=== PATIENT | female | born 1955 | race Caucasian/White ===

== ENCOUNTER 2021-01-09 17:46 | Day surgery (SDCO) | payer OTHER, MEDICARE ==
[2021-01-09 18:09] LABS: BASOPHIL 0.1 % (0-2); EOSINOPHIL 0.1 % (0-7); HCT 40.3 % (37.0-47.0); HGB 13.6 g/dl (12.5-16.0); LYMPHOCYTE 5.4 % (15-48); MCH 30.2 pg (25.0-31.0); MCHC 33.7 g/dL (32.0-36.0); MCV 89.4 fL (78.0-100.0); NEUTROPHIL 85.8 % (41-80); NRBC 0; PLT 212 K/uL (150-400); RBC 4.51 M/uL (4.20-5.40); RDW 13.8 % (11.5-14.0)
[2021-01-09 18:18] LABS: INR 1.07 (0.9-1.2); PROTHROMBIN TIME 13.2 SECONDS (11.4-13.6); PTT 30.9 SECONDS (22.2-34.7)
[2021-01-09 18:26] LABS: BILIRUBIN - TOTAL 0.9 mg/dL (0.2-1.0); CREATININE 0.6 mg/dL (0.51-0.95); GLOBULIN (CALCULATION) 4.5 g/dL; TOTAL PROTEIN 8.5 g/dL (6.4-8.2)
[2021-01-09 21:33] LABS: CORONAVIRUS 2019 SARS-COV-2 NEGATIVE (NEGATIVE); INFLUENZA A NAA NEGATIVE (NEGATIVE)
[2021-01-09] MEDS ORDERED: HCTZ25 MG PO (23:43)
[2021-01-09] MEDS ORDERED: CLARITIN10 MG PO (23:44)
[2021-01-09 23:52] LABS: BILIRUBIN NEGATIVE (NEGATIVE); BLOOD TRACE-INTACT Ery/uL (NEGATIVE); CLARITY CLEAR (CLEAR); COLOR YELLOW (YELLOW); GLUCOSE (U) NORMAL (NORMAL); LEUKOCYTES NEGATIVE Leu/uL (NEGATIVE); NITRITE NEGATIVE (NEGATIVE); PROTEIN NEGATIVE (NEGATIVE); SPECIFIC GRAVITY <=1.005 (1.001-1.030); UROBILINOGEN 0.2 mg/dL (0.2-1.0); pH 6.5 (5.0-9.0)
[2021-01-09 23:55] LABS: SQUAMOUS EPITHELIAL CELLS RARE; URINARY RBC RARE
[2021-01-10 05:51] LABS: BASOPHIL 0.3 % (0-2); EOSINOPHIL 0.1 % (0-7); HCT 34.6 % (37.0-47.0); HGB 11.7 g/dl (12.5-16.0); LYMPHOCYTE 17.6 % (15-48); MCH 30.6 pg (25.0-31.0); MCHC 33.8 g/dL (32.0-36.0); MCV 90.6 fL (78.0-100.0); NEUTROPHIL 69.7 % (41-80); NRBC 0; PLT 198 K/uL (150-400); RBC 3.82 M/uL (4.20-5.40); RDW 13.9 % (11.5-14.0)
[2021-01-10 06:17] LABS: BUN/CREAT RATIO (CALC) 27.5 RATIO; CREATININE 0.69 mg/dL (0.51-0.95); POTASSIUM 3.7 mmol/L (3.5-5.1)
[2021-01-10] MEDS ORDERED: TRAMADOL HCL50 MG PO (13:36)
--- NOTE | 2021-01-10 14:41 | NUR ---
PT. TO D/C HOME AFTER ECHO. NO NEEDS.
[2021-05-14] MEDS ORDERED: MINOCYCLINE HC100 MG PO (15:23)
[2021-05-14] MEDS ORDERED: VITAMIN D350 MC3 PO (15:24)
[2021-05-14] MEDS ORDERED: OS-CAL500 MG PO (15:24)
== END 2021-01-10 15:28 | disposition home or self-care (01) ==
LOC: FER 17:46 → FMS 20:26
PROVIDERS: Emergency Medicine; Nurse Practitioner; ADMIT Internal Medicine
DX: R07.89 Other chest pain (principal); R09.1 Pleurisy; I07.1 Rheumatic tricuspid insufficiency; I11.0 Hypertensive heart disease with heart failure; E87.6 Hypokalemia; J84.9 Interstitial pulmonary disease, unspecified; J98.11 Atelectasis; Z98.890 Other specified postprocedural states; Z90.711 Acquired absence of uterus with remaining cervical stump; Z82.49 Family history of ischemic heart disease and other diseases of the circulatory system; Z80.0 Family history of malignant neoplasm of digestive organs; Z80.3 Family history of malignant neoplasm of breast; Z83.3 Family history of diabetes mellitus; Z20.822 Contact with and (suspected) exposure to COVID-19
CPT/HCPCS: 36415; 71045; 71275; 80048; 80053; 80061; 81001; 83735; 83880; 84484; 85025; 85379; 85610; 85730; 93005; G0378; J1650; J1885; J2270; J2405; Q9967; U0002

== ENCOUNTER 2021-01-30 16:49 | Day surgery (SDCO) | payer OTHER ==
[~2021-01-30] VITALS: Ht 170.2 cm; Wt 92.3 kg
[~2021-01-30 16:49] MED LIST: CLARITIN10 MG PO; HCTZ25 MG PO; TRAMADOL HCL50 MG PO
[2021-01-30 17:43] LABS: BASOPHIL 0.6 % (0-2); EOSINOPHIL 0.4 % (0-7); HCT 37.2 % (37.0-47.0); HGB 12.5 g/dl (12.5-16.0); LYMPHOCYTE 14.1 % (15-48); MCH 30.3 pg (25.0-31.0); MCHC 33.6 g/dL (32.0-36.0); MCV 90.1 fL (78.0-100.0); MONOCYTE 11.7 % (0-12); MPV 9.7 fL (6.0-9.5); NEUTROPHIL 72.7 % (41-80); NRBC 0; PLT 330 K/uL (150-400); RBC 4.13 M/uL (4.20-5.40); RDW 12.4 % (11.5-14.0)
[2021-01-30 17:52] LABS: INR 1.15 (0.9-1.2)
[2021-01-30 17:59] LABS: ALBUMIN 2.9 g/dL (3.4-5.0); BILIRUBIN - TOTAL 0.4 mg/dL (0.2-1.0); BUN/CREAT RATIO (CALC) 16.9 RATIO; CREATININE 0.83 mg/dL (0.51-0.95); GLOBULIN (CALCULATION) 4.6 g/dL; MAGNESIUM 1.9 mg/dL (1.8-2.4); POTASSIUM 3.3 mmol/L (3.5-5.1); TOTAL PROTEIN 7.5 g/dL (6.4-8.2)
[2021-01-31 06:05] LABS: BASOPHIL 0.6 % (0-2); EOSINOPHIL 0.5 % (0-7); HCT 32.7 % (37.0-47.0); HGB 10.9 g/dl (12.5-16.0); LYMPHOCYTE 17.9 % (15-48); MCHC 33.3 g/dL (32.0-36.0); MCV 90.1 fL (78.0-100.0); MONOCYTE 12.5 % (0-12); MPV 9.9 fL (6.0-9.5); NRBC 0; PLT 290 K/uL (150-400); RBC 3.63 M/uL (4.20-5.40); RDW 12.4 % (11.5-14.0); WBC 8.4 K/uL (4.0-10.5)
[2021-01-31 06:12] LABS: BUN/CREAT RATIO (CALC) 17.6 RATIO; CREATININE 0.68 mg/dL (0.51-0.95); POTASSIUM 3.7 mmol/L (3.5-5.1)
--- NOTE | 2021-01-31 14:49 | NUR ---
01/31/21 Ms. Grider is independent in the home and community. She is employed and lives alone. She does not use any DME. No discharge planning needs are anticipated.
[2021-01-31] MEDS ORDERED: AMIODARONE HCL200 MG PO (15:02)
[2021-01-31] MEDS ORDERED: TESSALON PERLE100 MG PO ×2 (15:02→15:06)
[2021-01-31] MEDS ORDERED: ELIQUIS5 MG PO (15:02)
[2021-01-31] MEDS ORDERED: HYDROCODONE-CH473 ML PO (15:06)
--- NOTE | 2021-01-31 15:57 | NUR ---
DISCHARGE ORDERS RECEIVED. IV'S DC'D. DISCHARGE PAPERWORK GIVEN TO PT. ALL QUESTIONS ANSWERED. PT WHEELED TO PT PICKUP PER WHEELCHAIR.
[2021-05-14] MEDS ORDERED: MINOCYCLINE HC100 MG PO (15:23)
[2021-05-14] MEDS ORDERED: VITAMIN D350 MC3 PO (15:24)
[2021-05-14] MEDS ORDERED: OS-CAL500 MG PO (15:24)
== END 2021-01-31 16:13 | disposition home or self-care (01) ==
LOC: FER 16:49 → FTCU 18:50
PROVIDERS: Emergency Medicine; Nurse Practitioner; ADMIT Hospitalist
DX: I48.91 Unspecified atrial fibrillation (principal); R05 Cough; E87.6 Hypokalemia; I10 Essential (primary) hypertension; Z79.899 Other long term (current) drug therapy; Z20.822 Contact with and (suspected) exposure to COVID-19
CPT/HCPCS: 36415; 71045; 80048; 80053; 83735; 83880; 84443; 84484; 85025; 85610; 93005; G0378; J0282; J1650; J7060; U0002

== ENCOUNTER → 2021-05-21 | Day surgery (SDC) | payer OTHER ==
[~2021-05-21] VITALS: Ht 168.9 cm; Wt 100.0 kg
[~2021-05-21] MED LIST changes: +AMIODARONE HCL200 MG PO; +ELIQUIS5 MG PO; +HYDROCODONE-CH473 ML PO; +MINOCYCLINE HC100 MG PO; +OS-CAL500 MG PO; +TESSALON PERLE100 MG PO; +VITAMIN D350 MC3 PO
[2021-05-21 08:20] LABS: HCT 41.3 % (37.0-47.0); HGB 13.5 g/dl (12.5-16.0); MCH 29.3 pg (25.0-31.0); MCHC 32.7 g/dL (32.0-36.0); MCV 89.8 fL (78.0-100.0); MPV 9.3 fL (6.0-9.5); RBC 4.6 M/uL (4.20-5.40); RDW 14.9 % (11.5-14.0); WBC 4.7 K/uL (4.0-10.5)
[2021-05-21 08:40] LABS: ALBUMIN 3.4 g/dL (3.4-5.0); BILIRUBIN - TOTAL 0.5 mg/dL (0.2-1.0); CREATININE 0.83 mg/dL (0.51-0.95); GLOBULIN (CALCULATION) 3.8 g/dL; POTASSIUM 3.3 mmol/L (3.5-5.1); TOTAL PROTEIN 7.2 g/dL (6.4-8.2)
== END | disposition home or self-care (01) ==
LOC: FAS 07:26
PROVIDERS: Surgery
DX: Z12.11 Encounter for screening for malignant neoplasm of colon (principal); K63.89 Other specified diseases of intestine; I10 Essential (primary) hypertension; Z79.899 Other long term (current) drug therapy; Z80.0 Family history of malignant neoplasm of digestive organs
CPT/HCPCS: 36415; 80053; J1610; J2250; J7120